=== PATIENT | female | born 1975 | race African-American/Black ===

== ENCOUNTER 2018-07-01 09:07 | Day surgery (SDC) | payer OTHER ==
--- NOTE | 2018-06-30 14:01 | HP ---
HISTORY OF PRESENT ILLNESS: Ms. Carey Coreas is a 42-year-old female, who comes for a colonoscopy for abdominal pain and abnormal CAT scan of the abdomen. The patient is having abdominal pain over the last couple of weeks. The pain was sudden onset and was cramping in nature. No vomiting. No fever. The patient had abdominal CAT scan, which revealed thickened left colon_. The patient is undergoing colonoscopy for the above reasons. ALLERGIES: NONE. SOCIAL HISTORY: She is a smoker, smokes a pack of cigarettes per day. Does not drink alcohol. MEDICAL ILLNESSES: None. SURGERIES: 1. Hysterectomy. 2. Tubal ligation. 3. Cholecystectomy. PHYSICAL EXAMINATION: VITAL SIGNS: Pulse is 74 and blood pressure 130/96. HEENT: Conjunctivae clear. NECK: Supple. No adenitis or thyromegaly. CARDIOVASCULAR SYSTEM: First and second heart sounds normal. LUNGS: Clear to auscultate. ABDOMEN: Soft. Abdomen is tender over the left lower quadrant and periumbilical area. No rebound or guarding. EXTREMITIES: No edema. ADMITTING DIAGNOSES: Abdominal pain, abnormal CAT scan. PLAN: Colonoscopy. Job ID: [id number] MTDD
[2018-07-01] MEDS ORDERED: PROPOFOL 200 MG/20 ML VIAL ONE (16:43)
[2018-07-01] MEDS ORDERED: Lidocaine 1% PF 5 ML VIAL ONE (16:43)
--- NOTE | 2018-07-01 17:10 | OP ---
DATE OF PROCEDURE: 07/01/2018 PREOPERATIVE DIAGNOSES: Colon cancer screening, abdominal pain, and abnormal CAT scan. POSTOPERATIVE DIAGNOSES: 1. No pathology in the left colon. 2. Right-sided diverticular disease. 3. Hemorrhoids. PROCEDURE PERFORMED: Colonoscopy. DESCRIPTION OF PROCEDURE: The patient was placed on her left lateral position and was given sedation by Anesthesia Department. A rectal exam was done before the scope was advanced into the rectum. No lesions felt on rectal exam. A Pentax video colonoscope was introduced into the rectum and advanced all the way to the cecum. The ileocecal area and cecum had no pathology. The patient had scattered diverticula of the right colon on the ascending colon and hepatic flexure. The transverse colon and splenic flexure had no pathology. The descending colon, sigmoid colon, and rectum had no pathology. She did have hemorrhoids. DISCHARGE PLAN: A 42-year-old female came for colonoscopy. The colonoscopy showed right-sided diverticula and hemorrhoids. DISCHARGE RECOMMENDATIONS: 1. The patient advised to call me if she develops abdominal pain or hematochezia. 2. High-fiber diet. 3. Metamucil once a day. 4. To come back to clinic in 2 weeks. Job ID: [id number]
== END 2018-07-01 11:35 | disposition home or self-care (01) ==
LOC: SDC 09:07
PROVIDERS: ATTEND Internal Medicine Gastroenterology
PROC: 0DJD8ZZ Inspection of Lower Intestinal Tract, Via Natural or Artificial Opening Endoscopic (ICD-10-PCS; principal; 2018-07-01)
DX: K57.30 Diverticulosis of large intestine without perforation or abscess without bleeding (principal); K64.9 Unspecified hemorrhoids; F17.210 Nicotine dependence, cigarettes, uncomplicated
CPT/HCPCS: J2001; J2704

== ENCOUNTER 2018-07-25 07:38 | Outpatient (CLI) | payer OTHER ==
--- NOTE | 2018-07-25 09:02 | MMO ---
Bilateral MAMMO Bilat Screen [facility]. CLINICAL HISTORY: Patient is 42 years old and is seen for screening. The patient has the following family history of breast cancer: cousin female, malignant (generic) and maternal aunt, malignant (generic), GREAT AUNT. The patient has no personal history of cancer. The patient has a history of right Ultrasound Guided Core Biopsy in 2007 - benign. VIEWS: The views performed were: bilateral craniocaudal with tomosynthesis and bilateral mediolateral oblique with tomosynthesis. MAMMOGRAM FINDINGS: There are scattered fibroglandular densities. There is an oval mass seen in the upper-outer region of the right breast. In the left breast, there are no suspicious masses, calcifications or areas of architectural distortion. IMPRESSION: MASS IN THE RIGHT BREAST REQUIRES ADDITIONAL EVALUATION. AN ULTRASOUND EXAM IS RECOMMENDED. THE RESULTS OF THIS EXAM WERE SENT TO THE PATIENT. ACR BI-RADS Category 0 - Incomplete: Need additional imaging evaluation. [facility] will notify the patient of the need for additional imaging services. MAMMOGRAPHY NOTE: 1. A negative mammogram report should not delay a biopsy if a dominant of clinically suspicious mass is present. 2. Approximately 10% to 15% of breast cancers are not detected by mammography. 3. Adenosis and dense breasts may obscure an underlying neoplasm.
== END 2018-07-25 07:39 | disposition home or self-care (01) ==
LOC: BICMAMMO 07:38
PROVIDERS: ATTEND Family Medicine
DX: Z12.31 Encounter for screening mammogram for malignant neoplasm of breast (principal); Z80.3 Family history of malignant neoplasm of breast; N63.10 Unspecified lump in the right breast, unspecified quadrant
CPT/HCPCS: 77063; 77067

== ENCOUNTER 2018-07-29 07:49 | Outpatient (CLI) | payer OTHER ==
--- NOTE | 2018-07-29 09:25 | ULT ---
RIGHT BREAST ULTRASOUND: HISTORY: Palpable mass at the 1 o'clock position of the right breast and focal asymmetry in the upper outer as pect of the right breast on screening mammography. COMPARISON: Mammogram 07/25/2018. TECHNIQUE: Multiplanar, manzo scale, and color Doppler images were obtained in a right breast ultrasound. FINDINGS: At the area of palpable abnormality, there is a well-circumscribed mass with a shadowing coarse calci fication. This likely represents a popcorn-type calcification seen on mammography which likely repre sents a fibroadenoma. A second well-circumscribed mass is seen in the 9 o'clock position of the righ t breast. This has the appearance of a fibroadenoma and measures 1.1 cm in greatest dimension. This likely corresponds to the mammographic abnormality. No suspicious shadowing or mass is seen. IMPRESSION: BIRADS category 2 - benign findings. Annual screening mammography is recommended. POS: CLOTILDE
== END 2018-07-29 07:50 | disposition home or self-care (01) ==
LOC: BICULT 07:49
PROVIDERS: ATTEND Family Medicine
DX: N63.12 Unspecified lump in the right breast, upper inner quadrant (principal)

== ENCOUNTER 2018-12-14 20:17 | Observation (INO) | payer OTHER ==
[2018-12-14] MEDS ORDERED: Nitroglycerin 2% Ointment 1 INCH/1 GM Packet ONE (20:24)
[2018-12-14] MEDS ORDERED: Aspirin Chewable 81 MG TAB ONE (20:24)
--- NOTE | 2018-12-14 20:54 | RAD ---
PORTABLE CHEST: 12/14/18 HISTORY: Chest pain. Lungs are clear. Heart and mediastinum appear normal. The vascular markings are normal. IMPRESSION: Negative portable chest. POS: AGW
[2018-12-14 20:58] LABS: Hemoglobin 13.3 g/dL (12.0-16.0); Mean Corpuscular HGB CONC 32.7 g/dL (32.0-36.0); Mean Corpuscular Hemoglobin 30.6 pg (27.0-31.0); Mean Corpuscular Volume 93.6 fL (78.0-98.0); Mean Platelet Volume 7.2 fL (7.4-10.4); Platelet Count 344 thou/uL (130-400); Red Blood Cell (RBC) Count 4.33 mill/uL (4.20-5.40); White Blood Cell (WBC) Count 14.9 thou/uL (4.8-10.8)
[2018-12-14 21:03] LABS: ALT (SGPT) 11 U/L (8-55); AST (SGOT) 16 U/L (5-34); Albumin 4.7 g/dL (3.5-5.0); Alkaline Phosphatase 71 U/L (40-110); Anion Gap 13 mmol/L (10-20); BUN (Urea Nitrogen) 12 mg/dL (7.0-18.7); Bilirubin, Total 0.5 mg/dL (0.2-1.2); CK (CPK) 219 U/L (29-168); Calc. Creatinine Clearance 0 mL/min (70-130); Calcium 9.6 mg/dL (7.8-10.44); Carbon Dioxide 24 mmol/L (22-29); Chloride 104 mmol/L (98-107); Estimated GFR-MDRD 72; Globulin 2.9 g/dL (2.4-3.5); Glucose 106 mg/dL (70-105); Lipase 27 U/L (8-78); Potassium 3.7 mmol/L (3.5-5.1); Protein, Total 7.6 g/dL (6.0-8.3); Sodium 137 mmol/L (136-145)
[2018-12-14 21:16] LABS: Band 1 % (5-11); Eosinophils 2 % (0-10); Lymphocytes 44 % (21-51); MDiff Complete? YES; Monocytes 5 % (0-10); Neutrophil 39 % (42-75); Platelet Morphology Comment Appears Adequate; Reactive Lymphocytes 8 % (0-10)
[2018-12-14] MEDS ORDERED: Nitroglycerin 0.4 MG TAB (25 Tab Bottle) PO PRN (21:57)
[2018-12-14] MEDS ORDERED: Bisacodyl 10 MG SUPP PR PRN (21:59)
[2018-12-14] MEDS ORDERED: Senokot S 8.6-50 MG TAB PO PRN (21:59)
[2018-12-14] MEDS ORDERED: Calcium Carbonate 500 MG ChewTAB PO PRN (21:59)
[2018-12-14] MEDS ORDERED: Ondansetron ODT 4 MG TAB PO PRN (21:59)
[2018-12-14] MEDS ORDERED: Ondansetron PF 4 MG/2 ML Vial IVP PRN (21:59)
[2018-12-14] MEDS ORDERED: Acetaminophen 325 MG TAB PO PRN (21:59)
[2018-12-14] MEDS ORDERED: ALPRAZolam 0.25 MG TAB PO PRN (22:00)
[2018-12-14] MEDS ORDERED: traZODone HCl 50 MG TAB PO SCH (22:00)
[2018-12-14] MEDS ORDERED: cloNIDine 0.1 MG TAB PO PRN (22:01)
--- NOTE | 2018-12-14 22:58 | HP ---
PRIMARY DIRECTOR LEARNING: Dr. Sho Cote. CHIEF COMPLAINT: Chest discomfort. HISTORY OF PRESENT ILLNESS: Patient is a 43-year-old female with hyperlipidemia and family history of heart disease, presented to the emergency room with an episode of chest discomfort while she was at work. She currently works as a photovoltaic technician in the hospital. While she was doing vital signs, she had sudden onset of chest discomfort associated with lightheadedness and shortness of breath. She felt as if she was going to pass out. The pain was substernal, 8/10 without any radiation. No aggravating or relieving factor. She denies recent immobilization, travel, fever, chills, cough, or wheezing. No syncope reported. In the emergency room, her initial vital signs showed temperature 99 with a blood pressure of 152/87, respirations of 17 with pulse rate of 110. O2 saturation was 100% on room air. She received aspirin, IV fluid along with nitro patch, which significantly helped with the chest pain. PAST MEDICAL HISTORY: 1. Hyperlipidemia, recently started on statins. 2. Anxiety and depression. 3. Chronic insomnia. 4. Family history of heart disease. PAST SURGICAL HISTORY: 1. Partial hysterectomy for fibroid. 2. Tubal ligation. 3. Removal of left ovary at age of 38. ALLERGIES: NO KNOWN DRUG ALLERGIES. CURRENT HOME MEDICATION: 1. Wellbutrin Extended Release 300 mg daily. 2. Crestor 10 mg daily. 3. Trazodone 50 mg at bedtime. 4. Zoloft 25 mg daily. 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 She denies any history of drug abuse. She drinks alcohol socially. She smokes up to half pack a day. FAMILY HISTORY: Positive for heart disease. REVIEW OF SYSTEMS: All other review of systems was reviewed and was found negative. PHYSICAL EXAMINATION: VITAL SIGNS: As discussed above. GENERAL: A 43-year-old female, in no apparent distress. HEENT: Head, atraumatic and normocephalic. Sclerae anicteric. Moist mucous membrane. No oral lesion. NECK: Supple. No JVD appreciated. No carotid bruit. LUNGS: Clear to auscultation bilaterally. No wheezing, rales, or rhonchi. HEART: S1, S2 present. Regular rate and rhythm. No rubs or gallops. ABDOMEN: Soft, nontender. Bowel sounds present. No rebound or guarding. No costovertebral angle tenderness. EXTREMITIES: No edema or calf tenderness. NEUROLOGY: Grossly nonfocal. Moves all 4 extremities. PSYCHIATRY: Alert, awake, and oriented x3. SKIN: Warm and dry. LYMPH NODES: No palpable lymph nodes in the neck. PERIPHERAL VASCULAR: Radial pulses palpable bilaterally. MUSCULOSKELETAL: No joint swelling or tenderness. LABORATORY FINDINGS: WBC was 14.9. It was 11.7 and 14.4 earlier this year. Hemoglobin 13.3. D-dimer was 0.33. BUN 12, creatinine 1.02. LFTs in normal range. CK was slightly elevated at 219. Troponin was negative. BNP was negative. Recent fasting lipid profile showed LDL of 165, HDL 39, triglyceride 120, and cholesterol of 228. EKG by my review showed sinus tachycardia with a heart rate of [address]-T wave changes. Chest x-ray by my review was negative for infiltrate. IMPRESSION: 1. A 43-year-old female with chest discomfort improved with nitroglycerin. She is an ongoing smoker. She has family history of heart disease. She also has hyperlipidemia. 2. Anxiety. 3. Depression, mild, stable. 4. Hyperlipidemia. 5. Chronic insomnia. 6. Chronic kidney disease, stage 2. 7. Leukocytosis, unlikely to be infectious. 8. Ongoing tobacco dependence. PLAN: Patient will be monitored on the telemetry unit. We will obtain serial troponins. She will benefit from a stress test due to intermediate probability for coronary artery disease. We will check urinalysis due to leukocytosis. We will keep her n.p.o. past midnight. Resume all of her home medications including Crestor, Wellbutrin, trazodone, and Zoloft. Continue aspirin. Tobacco cessation was emphasized. Plan of care was discussed with the patient in detail. She stated understanding. Job ID: [id number]
[2018-12-14 23:56] LABS: Troponin I Less than 0.010 ng/mL (< 0.028)
[2018-12-15 00:38] VITALS: BMI 32.8
[2018-12-15] MEDS: traMADol HCl 50 MG TAB PO PRN ×2 (01:04→08:11)
[2018-12-15 03:04] LABS: Troponin I Less than 0.010 ng/mL (< 0.028)
[2018-12-15 05:37] LABS: Bilirubin Negative (Negative); Blood, Urine Negative (Negative); Clarity Clear (Clear); Glucose, Urine (Dipstick) Normal (Negative); Leukocyte Negative Leu/uL (Negative); Nitrite Negative (Negative); Protein, Urine (Dipstick) Negative (Neg-Trace); RBC/HPF 0-3 HPF (0-3); Urobilinogen Normal mg/dL (Less than 2); WBC/HPF 0-3 HPF (0-3)
[2018-12-15 05:54] LABS: Bacteria/HPF 1+ HPF (None Seen)
[2018-12-15] MEDS ORDERED: Aspirin 325 mg Enteric Coated Tablet PO SCH (09:00)
[2018-12-15] MEDS ORDERED: Bupropion 150 MG XL TAB PO SCH (09:00)
[2018-12-15] MEDS ORDERED: Rosuvastatin 10 MG TAB PO SCH (09:00)
--- NOTE | 2018-12-15 10:56 | NM ---
EXAM: Cardiac SPECT HISTORY: Chest pain PROTOCOL: Stress only, single isotope TYPE OF STRESS: Exercise stress was monitored and interpreted by Dr. Kim. RADIOPHARMACEUTICAL: 33 mCi technetium 99m-sestamibi injected intravenously FINDINGS: Homogeneous tracer distribution is seen in the myocardial segments on the post stress images. Gated SPECT LVEF: 64% Wall motion exam: Normal IMPRESSION: Normal post stress myocardial perfusion scan.
[2018-12-15 12:05] VITALS: BP 144/66; TEMP 99.1
[2018-12-15] MEDS ORDERED: Lisinopril 10 MG TAB PO SCH (12:45)
[2018-12-15] MEDS ORDERED: traZODone HCl 50 MG TAB PO SCH (21:00)
--- NOTE | 2018-12-16 03:37 | DIS ---
DATE OF ADMISSION: 12/14/2018 DATE OF DISCHARGE: 12/15/2018 PRIMARY CARE PHYSICIAN: Sho Cote MD DISCHARGE DIAGNOSES: 1. Atypical chest pain. 2. Hypertension: New diagnosis. 3. Hyperlipidemia. 4. Tobacco abuse disorder. 5. Anxiety. 6. Depression. 7. Obesity. 8. Negative stress test. HOSPITAL COURSE: A 43-year-old female with known history of hyperlipidemia and anxiety with depression, admitted with acute onset of chest pain associated with lightheadedness and shortness of breath. Symptoms resolved with nitroglycerin and aspirin. Acute myocardial infarction was ruled out with serial troponin. Given risk factors of family history as well as hyperlipidemia and tobacco abuse, the patient was further risk stratified with nuclear stress test which was negative. The patient was also found to have elevated blood pressure, which was consistent, hence was started on lisinopril 10 mg p.o. daily. The patient remained stable and chest-pain free and was subsequently discharged. PHYSICAL EXAMINATION: VITAL SIGNS: Temperature 99.1, pulse 66, respiratory rate 16, SpO2 of 99% on room air, blood pressure is 144/66. GENERAL: Obese female, in no distress. Afebrile. Anicteric. Acyanotic. HEENT: Normocephalic, atraumatic. Oral mucosa is moist. CARDIOVASCULAR: Regular rhythm and rate with normal heart sounds 1 and 2. RESPIRATORY: Good air entry bilaterally with no crackle or rhonchi or use of accessory muscles. GI: Obese, soft, nontender, nondistended with normal bowel sounds. EXTREMITIES: Grossly normal looking, atraumatic with no edema or erythema. SHOP TAILOR: Conscious, alert, oriented x3 with appropriate mental status. DISCHARGE CONDITION: Improved. DISCHARGE DISPOSITION: Home. DISCHARGE MEDICATIONS: 1. Tramadol 50 mg q.6 p.r.n. 2. Bupropion 300 mg p.o. daily. 3. Crestor 10 mg p.o. daily. 4. Sertraline 25 mg p.o. daily. 5. Trazodone 50 mg p.o. daily at bedtime. 6. Aspirin 325 mg p.o. daily. 7. Lisinopril 10 mg p.o. daily. FOLLOWUP: With PCP in 7 days. Job ID: [id number]
== END 2018-12-15 14:25 | disposition home or self-care (01) ==
LOC: ERS 20:17 → 2SW 21:40
PROVIDERS: ADMIT Internal Medicine; ATTEND Internal Medicine
DX: R07.89 Other chest pain (principal); I12.9 Hypertensive chronic kidney disease with stage 1 through stage 4 chronic kidney disease, or unspecified chronic kidney disease; N18.2 Chronic kidney disease, stage 2 (mild); E78.5 Hyperlipidemia, unspecified; F17.210 Nicotine dependence, cigarettes, uncomplicated; G47.00 Insomnia, unspecified; F41.8 Other specified anxiety disorders; D72.829 Elevated white blood cell count, unspecified; E66.9 Obesity, unspecified; Z68.32 Body mass index [BMI] 32.0-32.9, adult; Z79.899 Other long term (current) drug therapy
CPT/HCPCS: 36415; 71045; 78452; 80053; 81001; 82550; 83690; 83880; 84484; 85025; 85379; 90471; 90732; 93005; 93017; 94760; 96360; 96361; A9500; G0009; G0378

== ENCOUNTER 2018-12-20 14:04 | Emergency (ER) | payer OTHER ==
--- NOTE | 2018-12-20 15:26 | RAD ---
PA AND LATERAL CHEST: HISTORY: Cough. FINDINGS: The cardiomediastinum is normal. The lungs are well expanded and clear. The bony thorax is normal. IMPRESSION: Normal examination. POS: TPC
== END 2018-12-20 15:09 | disposition home or self-care (01) ==
LOC: SCSER 14:04
DX: J20.9 Acute bronchitis, unspecified (principal); E78.00 Pure hypercholesterolemia, unspecified; E78.5 Hyperlipidemia, unspecified; F41.9 Anxiety disorder, unspecified; I10 Essential (primary) hypertension; F17.210 Nicotine dependence, cigarettes, uncomplicated; Z79.82 Long term (current) use of aspirin; Z79.899 Other long term (current) drug therapy
CPT/HCPCS: 71046